=== PATIENT | female | born 1935 | race Caucasian/White ===

== ENCOUNTER 2016-10-17 10:47 | Emergency (ER) | payer OTHER, MEDICARE ==
[~2016-10-17] VITALS: Ht 160 cm; Wt 75.0 kg
[~2016-10-17 10:47] MED LIST: ACET-1256 PO; ATEN-175 PO; CRS/10 PO; HYZ/50125 PO; LEVO-438 PO; NIFE30TA83 PO; NYSS/ PO; POTA10CA28 PO
[2016-10-17 10:54] VITALS: TEMP 36.6; Ht 160 cm; Wt 75.0 kg
[2016-10-17] MEDS ORDERED: SYN75 PO (11:02)
[2016-10-17] MEDS ORDERED: LOSA50TA6 PO (11:02)
--- NOTE | 2016-10-17 11:50 | DIAGNOSTIC IMAGING REPORT ---
CT LUMBAR SPINE WITHOUT CT DOSE: 586.28 mGycm CLINICAL HISTORY: Low back pain TECHNIQUE: Helical images were acquired in transverse plane. Reformatted sagittal and coronal images were reviewed. CONTRAST: No contrast was administered COMPARISON STUDY: None. FINDINGS: L1-2 level: There is no evidence of significant disc bulge or focal herniation. There is no evidence of spinal or foraminal stenosis. L2-3 level: There is a mild circumferential disc bulge. There is mild spinal stenosis. There is mild facet joint arthropathy on the right. L3-4 level: There is a circumferential disc bulge. There is facet joint arthropathy on the right. There is mild to moderate spinal stenosis. L4-5 level: There is a mild circumferential disc bulge. There is a slight triangular configuration of the thecal sac.. L5-S1 level: There is no evidence of significant disc bulge or focal herniation. There is no evidence of spinal or foraminal stenosis. There are no acute fractures or traumatic subluxations. There is a lumbar levoscoliosis. No destructive lesions are visualized. IMPRESSION: 1. No acute fractures or traumatic subluxations identified 2. Lumbar levoscoliosis 3. Multilevel spondylitic changes. The findings are most severe at the L3-4 level where there is mild to moderate spinal stenosis. Electronically signed by: Mitchell Garcia M.D. 10/17/2016 11:49 AM Dictated Date/Time: 10/17/2016 11:45 AM
[2016-10-17 12:49] LABS: URINE APPEARANCE CLEAR (CLEAR); URINE BILIRUBIN NEG (NEG); URINE COLOR YELLOW; URINE NITRITE NEG (NEG); URINE SPECIFIC GRAVITY 1.007 (1.000-1.030); UROBILINOGEN NEG (NEG)
[2016-10-17 12:55] LABS: MANUAL MICROSCOPIC REQUIRED? NO; REVIEW REQ? NO
[2016-10-17] MEDS ORDERED: TRAM-10 PO (13:40)
--- NOTE | 2016-10-17 13:41 | EMERGENCY ROOM VISIT NOTE ---
ED Visit Note First contact with patient: 11:03 CHIEF COMPLAINT: Left low back pain 1 month HISTORY OF PRESENT ILLNESS: Patient is an 81-year-old white female who presents emergency department for evaluation of left low back pain 1 month. She is accompanied by her daughters who are visiting from [place]. Patient reports that she has had pain in her left low back for about a month. She has experienced pain every day, but states that the pain is not constant. It is located in the left side of her low back, and does not radiate. She only feels "jabs or shocks" of pain with certain movements, particularly twisting or leaning over. At the present time she has no pain and rates her discomfort a 0/ 10. She took a few doses of Tylenol and applied ice to the area, otherwise has not done anything else for her pain. She denies any unusual activities falls or direct trauma prior to the onset of her pain. It does not radiate into her buttocks or to her legs. There is no associated numbness, tingling or weakness. She denies any radiation of the pain to her abdomen. No nausea, vomiting, diarrhea, constipation or stool changes, she denies any urinary symptoms. She denies her having problems with her back previously. REVIEW OF SYSTEMS: Review of systems as per HPI. All other systems reviewed were negative. 10 systems reviewed. PMH: Electronic medical records are reviewed and summarized as above/below. See Problem List. SOCIAL HISTORY: Patient lives at home by herself. She is a smoker. PHYSICAL EXAM: Vital Signs: Reviewed Nurse's notes. CONSTITUTIONAL: Patient is a pleasant, well-appearing 81-year-old white female who is awake and alert and in no acute distress seated in the chair at the bedside. She does not have any discomfort when standing or walking. Normal gait. CARDIOVASCULAR: Regular rate and rhythm. Peripheral pulses easily palpable. RESPIRATORY: Breath sounds equal and clear to auscultation without wheezes, rales, or rhonchi heard. Full and equal chest expansion without accessory muscle use or retractions. ABDOMEN: Bowel sounds are present. Abdomen is soft, nontender and nondistended. INTEGUMENTARY: No lesions or rash, normal skin turgor. LYMPH: No lymphadenopathy. SPINE: Examination of the patient's back does not demonstrate any ecchymosis, abrasions or outward signs of trauma. No erythema, increased warmth or induration. Patient has no midline discomfort to palpation over the lumbar spinous processes. No reproducible paraspinous muscle tenderness or spasm. There is no pain over the SI joint or the sciatic notch. Range of motion is full, patient does have some discomfort with rotation. EXTREMITIES: Leg lengths are symmetrical. Negative logroll bilaterally. Normal strength including dorsi-flexion and plantar flexion of the great toes and ankles and flexion and extension of the knees and flexion of the hips. Negative bilateral straight leg raise testing. Lower extremity DTRs are equal and symmetrical bilaterally. Distal pulses are easily palpable. Sensation light touch is intact over the lower extremities bilaterally. EMERGENCY DEPARTMENT COURSE: Urine sample was collected and urinalysis was completely clear without signs of infection. Lumbar spine CT was obtained and noted mild arthritic changes and spinal stenosis. Patient was reviewed with attending physician who also independently evaluated the patient. Conservative care measures were discussed with the patient and her family. She is encouraged to use acetaminophen, she states that she cannot tolerate NSAIDs. She can apply heat to the area, and was given a prescription for tramadol she can use for severe pain. She is established with [facility] and was encouraged to follow-up with them for further care and evaluation, particularly if her symptoms are not improving. I suspect her pain is largely muscular or ligamentous in nature, but could be related to the stenosis. She does not have any physical exam findings to suspect acute cord compression or cauda equina syndrome. She is discharged home in good condition. CT LUMBAR SPINE WITHOUT CT DOSE: 586.28 mGycm CLINICAL HISTORY: Low back pain TECHNIQUE: Helical images were acquired in transverse plane. Reformatted sagittal and coronal images were reviewed. CONTRAST: No contrast was administered COMPARISON STUDY: None. FINDINGS: L1-2 level: There is no evidence of significant disc bulge or focal herniation. There is no evidence of spinal or foraminal stenosis. L2-3 level: There is a mild circumferential disc bulge. There is mild spinal stenosis. There is mild facet joint arthropathy on the right. L3-4 level: There is a circumferential disc bulge. There is facet joint arthropathy on the right. There is mild to moderate spinal stenosis. L4-5 level: There is a mild circumferential disc bulge. There is a slight triangular configuration of the thecal sac.. L5-S1 level: There is no evidence of significant disc bulge or focal herniation. There is no evidence of spinal or foraminal stenosis. There are no acute fractures or traumatic subluxations. There is a lumbar levoscoliosis. No destructive lesions are visualized. IMPRESSION: 1. No acute fractures or traumatic subluxations identified 2. Lumbar levoscoliosis 3. Multilevel spondylitic changes. The findings are most severe at the L3-4 level where there is mild to moderate spinal stenosis. 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 (12) Thrush Status: Resolved Current/Historical Medications Scheduled Atenolol (Tenormin), 100 MG PO QAM Levothyroxine Sodium (Synthroid), 75 MCG PO QAM Losartan Potassium (Cozaar), 50 MG PO DAILY Nifedipine Ext Rel (Procardia Xl Ext Rel), 60 MG PO QAM Rosuvastatin Calcium (Crestor), 10 MG PO HS Scheduled PRN Tramadol (Ultram), 50 MG PO Q4H PRN for Pain Allergies Coded Allergies: Ibuprofen (Unverified Allergy, Unknown, NAUSEA, 10/17/16) Vital Signs Date Time Temp Pulse Resp B/P Pulse Ox O2 Delivery O2 Flow Rate FiO2 10/17/16 14:04 62 16 144/79 98 10/17/16 12:44 52 16 150/70 98 Room Air 10/17/16 10:54 36.6 72 20 156/83 97 Room Air Laboratory Results Test 10/17/16 12:40 Urine Color YELLOW Urine Appearance CLEAR (CLEAR) Urine pH 8.0 (4.5-7.5) Urine Specific Atlantic 1.007 (1.000-1.030) Urine Protein NEG (NEG) Urine Glucose (UA) NEG (NEG) Urine Ketones NEG (NEG) Urine Occult Blood NEG (NEG) Urine Nitrite NEG (NEG) Urine Bilirubin NEG (NEG) Urine Urobilinogen NEG (NEG) Urine Leukocyte Esterase NEG (NEG) Departure Information Impression Primary Impression: Lumbar back pain Prescriptions Tramadol (Ultram) 50 Mg Tab 50 MG PO Q4H Y for Pain, #20 TAB For Initial Treatment Prov: Kaila Granados PA 10/17/16 Referrals No Doctor, Assigned (PCP) Fritz Kebede, DO Patient Instructions My [facility] Additional Instructions Tramadol (Ultram) 50mg: Take 1-2 pills every four hours for breakthrough pain. Avoid alcohol, operating machinery or dangerous equipment, working on ladders or roofs, DRIVING, or situations where being under the influence may be dangerous. It is recommended to use an rtom-mmy-alytzos stool softener such as Colace, 100mg twice daily while taking this medication to avoid constipation. Acetaminophen(Tylenol) may be used for fever or pain. Use 1000mg every six hours as needed. Avoid using more than 3000mg in a 24 hour period. This medication can be taken if you need to drive, work, or perform activities which may be dangerous when taking narcotic pain medication. Rest and avoid heavy lifting until your symptoms resolve and then gradually return to full activity. A good rule of thumb is if it hurts your back to perform a certain activity, then it should be avoided until you are healthy again. A heating pad, warm compresses, or a hot shower may help with tight muscles and can be done several times a day as needed. Continue current medications. Return to the ER immediately for any numbness, tingling, severe pain, loss of control of your bowels or bladder, inability to walk, or as needed. Follow up with Dr. Kebede with [facility] for a recheck of your current condition.
--- NOTE | 2016-10-17 14:01 | EMERGENCY ROOM VISIT NOTE ---
ED Visit Note First contact with patient: 11:03 The patient was seen and examined with Cherelle Granados PA-C. I agree with the history, physical and findings. Please see the note for disposition and details.
[2016-10-17 14:04] VITALS: BP 144/79; PULSE 62; O2SAT 98
== END 2016-10-17 14:05 | disposition home or self-care (01) ==
LOC: C.EDB 10:49 → C.EDC 14:05
DX: M54.5 Low back pain (principal); J44.9 Chronic obstructive pulmonary disease, unspecified; E78.5 Hyperlipidemia, unspecified; I10 Essential (primary) hypertension; E03.9 Hypothyroidism, unspecified; Z79.899 Other long term (current) drug therapy; F17.210 Nicotine dependence, cigarettes, uncomplicated

== ENCOUNTER 2019-02-09 17:23 | Inpatient (IN) ==
--- OUTSIDE RECORDS SUMMARY | 2019-02-09 17:26 | External Medical Summary | Continuity of Care Document ---
:1935 Author Name Enrrique Funes, Provider Address Unavailable Unavailable , Care Team Providers Name Role Phone Unavailable Unavailable Unavailable Michael [email or web address] ROBERT LEONARDO Unavailable Unavailable Unavailable Unavailable Unavailable Problems Chest pressure (786.59) (R07.89) Hypertension (401.9) (I10) Hyperlipidemia (272.4) (E78.5) Tobacco use (305.1) (Z72.0) Lump or mass in breast (611.72) (N63.0) Hypothyroidism (244.9) (E03.9) Osteoarthritis (715.90) (M19.90) Coronary artery calcification (414.00) (I25.10) Chronic obstructive pulmonary disease (496) (J44.9) Premature ventricular contractions (427.69) (I49.3) Palpitations (785.1) (R00.2) Menopause (627.2) (Z78.0) Ectopic atrial rhythm (427.89) (I49.1) Abnormal lung field (793.19) (R91.8) Mastodynia (611.71) (N64.4) Allergies and Adverse Reactions Norvasc TABS (Allergy) Medications NIFEdipine ER Osmotic Release 60 MG Oral Tablet Extended Release 24 Hour; TAKE 1 TABLET DAILY. Shantel Weinstein Start: 18-Feb-2017 Quantity: 30 Refills: 5 Levothyroxine Sodium 75 MCG Oral Tablet; TAKE 1 TABLET DAILY . Shantel Refills: 0 Crestor 10 MG Oral Tablet; TAKE 1 TABLET DAILY. Shantel Refills: 0 Losartan Potassium 50 MG Oral Tablet; TAKE 1 TABLET DAILY. Shantel Start: 16-Mar-2017 Quantity: 30 Refills: 0 Atenolol 100 MG Oral Tablet; TAKE (1) TABLET BY MOUTH ONCE DAILY Shantel Weinstein Start: 13-May-2012 Quantity: 30 Refills: 5 Aspirin 81 MG TABS; TAKE 1 TABLET DAILY. Shantel Weinstein hay Start: 06-Oct-2013 Quantity: 30 Refills: 0 Procedures History of Oral Surgery Tooth Extraction Status: Completed Immunizations Immunizations not documented Social History - Smoking Status Smoker. current status unknown Interventions Follow-ups/ReferralsFollow-up visit in 6 months; Done: 17 Mar 2018 Plan of Treatment Planned Observations Planned Goals not documented Results No Known Results Results not documented Encounters Appointment; Michael Weinstein M.D. 17-Mar-2018 10:15 Encounter Diagnosis: Problem not documented Appointment; Zaira Roberts PA-C 03-Sep-2017 10:30 Encounter Diagnosis: Problem not documented Appointment; Stress, Echocardiogram 1 03-Sep-2017 9:30 Encounter Diagnosis: Problem not documented Appointment; Blake Oh PA-C 27-Aug-2017 14:30 Encounter Diagnosis: Problem not documented Appointment; Michael Weinstein M.D. 16-Mar-2017 11:30 Encounter Diagnosis: Problem not documented
[2019-02-09 18:36] LABS: Basophils # (auto) 0.01 K/uL (0-0.2); Basophils % (auto) 0.1 %; Eosinophils # (auto) 0.06 K/uL (0-0.5); Eosinophils % (auto) 0.9 %; Hematocrit (blood only) 44.9 % (37-47); Hemoglobin 15.2 g/dL (12.0-16.0); Immature Granulocytes # (auto) 0.01 K/uL (0.00-0.02); Immature Granulocytes % (auto) 0.1 %; Lymphocytes # (auto) 1.52 K/uL (1.2-3.4); Lymphocytes % (auto) 22.8 %; Mean Corpuscular Hemoglobin 31.1 pg (25-34); Mean Corpuscular Hgb Conc 33.9 g/dL (32-36); Mean Corpuscular Volume 91.8 fL (80-100); Mean Platelet Volume 12.1 fL (7.4-10.4); Monocytes # (auto) 0.63 K/uL (0.11-0.59); Monocytes % (auto) 9.4 %; Neutrophils # (auto) 4.44 K/uL (1.4-6.5); Neutrophils % (auto) 66.7 %; Platelet Count 195 K/uL (130-400); RDW Coefficient of Variation 13.5 % (11.5-14.5); RDW Standard Deviation 45.4 fL (36.4-46.3); Red Blood Count 4.89 M/uL (4.2-5.4); White Blood Count 6.67 K/uL (4.8-10.8)
--- NOTE | 2019-02-09 18:57 | XRay Report ---
XR chest 1V portable CLINICAL HISTORY: 83 years-old Female presenting with Chest Pain. TECHNIQUE: Portable upright AP view of the chest was obtained. COMPARISON: 12/17/2015. FINDINGS: Atherosclerosis of the aortic arch. Cardiac silhouette enlarged. Eventration of the left hemidiaphrag m as on prior exam. No focal opacity. No large effusion or pneumothorax. Degenerative changes of the thoracic spine. Reversed total right shoulder arthroplasty. Underlying osteopenia suspected. Upper ab domen normal. IMPRESSION: 1. Cardiomegaly. No other convincing evidence of acute cardiopulmonary disease. Electronically signed by: Rah Dozier M.D. 02/09/2019 6:56 PM
[2019-02-09 19:03] LABS: Albumin Level 3.7 gm/dl (3.4-5.0); BUN Creatinine Ratio 16.5 (10-20); Calcium 9.1 mg/dl (8.5-10.1); Creatinine Clr Calc Pharmacy 42.9 ml/min; Est GFR (Non-African American) 56.1
[2019-02-09 19:12] LABS: Bilirubin,Total 0.2 mg/dl (0.2-1); Globulin 3.6 gm/dl (2.5-4.0); Total Protein 7.3 gm/dl (6.4-8.2); Troponin I 0.681 ng/ml (0-0.045)
[2019-02-09] MEDS ORDERED: ASPIRIN CHEW 324 MG PO STA (19:49)
[2019-02-09] MEDS ORDERED: Heparin IV Low Dose WITH Bolus STA (19:49)
[2019-02-09] MEDS ORDERED: HEPARIN SODIUM/DEXTROSE 25,000 UNITS/500 ML BAG IV SCH (20:00)
[2019-02-09 20:16] LABS: Partial Thromboplastin Ratio 0.9; Partial Thromboplastin Time 24.7 Seconds (21.0-31.0); Prothrombin Time 10.1 Seconds (9.0-12.0)
[2019-02-09] MEDS ORDERED: Heparin BOLUS **ED Use Only IV STA (20:20)
--- NOTE | 2019-02-09 20:52 | History & Physical Report ---
Date of Service February 09, 2019 Assessment & Plan (1) NSTEMI (non-ST elevated myocardial infarction): 83 y/o F with PMH HTN, HLD, Hypothyroidism, Tobacco Abuse, Coronary Artery Calcifications (incidentally noted on CT scan 2016), and a history of an Ectopic Atrial Rhythm presents to [facility] with complaints of substernal chest pressure found to have elevated trop in ED with anterior ischemic changes on EKG. NSTEMI -EKG on admit: NSR with T wave inversion anterior leads T3-5 -initial trop .681. Repeat x2 pending -will cont medical management with Home ASA/BB/ARB/Statin, Nitropaste -Cont IV Heparin 25,000 units -Dobutamine stress echo August 2017: Negative for ischemia at 91% MPHR. No arrhythmia. No chest pain. EF 65-70%. Normal wall motion. No LVH. Type 1 diastolic dysfunction. Moderate left atrial dilation. Mild MR. Normal RVSP. -Cardiology input appreciated -A1C, Lipid panel ordered HTN/HLD -cont home losartan 50, nifedipine 60, crestor 10 -can consider increasing to high dose statin moving forward -looking back at outpt records, BP does not seem to be optimal, can also consider increase in BP med dosing H/O Ectopic atrial rhythm/PVCs -Continue beta-hardy therapy with Atenolol 100. -Asymptomatic at present Hypothyroidism -cont home levothyroxine 75 mcg -TSH pending Tobacco Abuse -nicotine patch ordered -Smoking cessation discussed. Pt not interested in quitting at this time FEN/GI: HH Diet DVT Prophylaxis: Heparin FULL CODE Dispo: PCU Tele. Cards consult for possible Cath vs medical management pending. History of Present Illness Chief Complaint: chest pressure Primary Care Provider: Jazz Hurt PA-C 83 y/o F with PMH HTN, HLD, Hypothyroidism, Tobacco Abuse, Coronary Artery Calcifications (incidentally noted on CT scan 2016), and a history of an Ectopic Atrial Rhythm presents to [facility] with complaints of substernal chest pressure. Pt notes that she has had similar symptoms since last year and gets chest pressure about once a month on average. This usually lasts 10-15 min and self-resolves. This is not associated with exertion and occurs during rest. These episodes do not appear to follow any specific pattern. Today, pt comes into the ER because she had 3-4 occurrences of this chest pressure starting at about 7:30 AM and every few hrs thereafter, all lasting 10-15 min and all self-resolving. Again, appeared to be 'random' and not exertional. Pt had associated diaphoresis, but otherwise denied palpitations, SOB, F/N/V/D, syncope, near-syncope, edema, melena, hematochezia, hematuria, or other bleeding. Symptoms are not worsened by getting up and walking, exertion, changes in body position, or with breathing / coughing. No specific triggers such as food either. Pt was seen as an outpt at [facility] August 2017 for this and underwent Dobutamine Stress Echo, which was negative. Was also recommended to start a trial of Protonix 40 mg to take 3 days/week, which did appear to decrease the frequency of these incidents. Pt with no other acute concerns or complaints. ER Course: EKG- NSR, T wave inversion V3, V4, V5. CXR- Cardiomegaly. No other convincing evidence of acute cardiopulmonary disease. Pt received ASA 243 mg, IV Heparin 25,000 units Labs- Trop .681. Otherwise unremarkable Surg Hx: R shoulder surgery Social: Current everyday smoker ~1PPD for past 40+ yrs. Denies Alcohol/Illicit Drug use. Lives at home independently. Allergies Allergy/AdvReac Type Severity Reaction Status Date / Time ibuprofen Allergy Unknown NAUSEA Unverified 02/09/19 19:25 Home Medications Home Medications Medication Instructions Recorded Confirmed Type aspirin [Aspir-81] 81 mg PO DAILY 02/09/19 02/09/19 History atenolol 100 mg PO DAILY 02/09/19 02/09/19 History levothyroxine 75 mcg PO DAILY 02/09/19 02/09/19 History losartan [Cozaar] 50 mg PO DAILY 02/09/19 02/09/19 History nifedipine 60 mg PO DAILY 02/09/19 02/09/19 History pantoprazole 40 mg PO .TODAU 02/09/19 02/09/19 History rosuvastatin [Crestor] 10 mg PO HS 02/09/19 02/09/19 History Past Med/Surg History Medical History Hypertension Surgical History Hx of shoulder surgery Family History Other Family history non-contributory Social History 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 Beliefs That Will Affect Care: Faith Faith Beliefs: anabaptism Current Living Situation: Alone Feels Safe at Home: Yes Smoking Status: Current every day smoker Tobacco Type: cigarettes ; Second Hand Exposure: No ; Hx Alcohol Use: No Review of Systems Review of Systems: All systems reviewed & are unremarkable except as noted in HPI & below Physical Exam Constitutional: WD/WN, vitals as above Eyes: PERRL, conjunctivae normal, anicteric sclerae ENMT: external ear and nose normal, oropharynx normal Respiratory: normal respiratory effort, lungs clear to auscultation Cardiovascular: RRR, no murmur, no edema Chest (Breasts): Additional Comments: substernal chest pressure not reproducible on palpation Gastrointestinal (Abdomen): normal bowel sounds, soft, nontender, no hepatosplenomegaly Skin: no rashes, warm and dry Psychiatric: A+Ox3, euthymic affect Lymphatic: No LE swelling Results & Data Vital Signs (Past 12 Hours) Vital Signs Temp Pulse Pulse Resp BP BP Pulse Ox 02/09/19 19:40 66 20 148/69 H 99 02/09/19 18:10 57 L 20 167/78 H 96 02/09/19 17:26 36.7 C 69 18 165/92 H 97 Laboratory Results Laboratory Results - last 24 hr 02/09/19 02/09/19 02/09/19 18:18 18:18 18:18 WBC 6.67 RBC 4.89 Hgb 15.2 Hct 44.9 MCV 91.8 MCH 31.1 MCHC 33.9 RDW Std Deviation 45.4 RDW Coeff of Aurelio 13.5 Plt Count 195 MPV 12.1 H Immature Gran % (Auto) 0.1 Neut % (Auto) 66.7 Lymph % (Auto) 22.8 Yancey % (Auto) 9.4 Eos % (Auto) 0.9 Baso % (Auto) 0.1 Immature Gran # (Auto) 0.01 Neut # (Auto) 4.44 Lymph # (Auto) 1.52 Yancey # (Auto) 0.63 H Eos # (Auto) 0.06 Baso # (Auto) 0.01 PT 10.1 INR 1.0 APTT 24.7 PTT Ratio 0.9 Sodium 141 Potassium 4.0 Chloride 108 H Carbon Dioxide 26 Anion Gap 6.0 BUN 16 Creatinine 0.94 Est Cr Clr Drug Dosing 42.9 Est GFR ( Amer) 65.0 Est GFR (Non-Af Amer) 56.1 BUN/Creatinine Ratio 16.5 Glucose 117 H Calcium 9.1 Total Bilirubin 0.2 AST 16 ALT 18 Alkaline Phosphatase 90 Troponin I 0.681 H* Total Protein 7.3 Albumin 3.7 Globulin 3.6 Albumin/Globulin Ratio 1.0 Lipase 117 Medications Administered Current Inpatient Medications Heparin Sodium/Dextrose (Heparin Sodium/Dextrose) 25,000 units in 500 mls @ 14 mls/hr IV .Q24H [facility]; Protocol Stop: 03/11/19 19:59 Code Status & VTE Plan Code Status FULL CODE Supervising Physician Co-Signing Physician Notes Attending addendum: I have physically seen this patient, have supervised the medical residents activities, and agree with the H&P unless as otherwise noted. Assessment and Plan: NSTEMI/hypertension- The patient will be admitted to telemetry for serial cardiac enzymes, serial EKG's, cardiac rhythm monitoring and a 2-D echocardiogram with Dopplers.. Continue heparin drip begun in ED without bolus. Continue atenolol 100 mg p.o. daily, losartan 50 mg daily, nifedipine 60 mg daily and aspirin 81 mg daily. Consult cardiology. Hyperlipidemia- Continue rosuvastatin 10 mg at bedtime. Check a fasting lipid panel and hemoglobin A1c. Remainder of orders and notations as noted. PG Care Time/CCT Total # of Minutes Spent Total Time Spent with Patient: Total time spent is greater than 50% in coordination of care (as documented) at patient's floor/unit and/or counseling patient: Resident Activity Tracking Resident Involvement: Resident Care Provided Care Provided: Adult Hospital Medicine
[2019-02-09] MEDS ORDERED: ONDANSETRON INJ 2 MG/ML 2 ML VIAL IV PRN (22:24)
[2019-02-09] MEDS ORDERED: ACETAMINOPHEN 325 MG TAB PO PRN (22:24)
[2019-02-09] MEDS ORDERED: ALUMINUM/MAGNESIUM SUSP 30 ML UDC PO PRN (22:24)
[2019-02-09] MEDS: NITROGLYCERIN 2% OINTMENT 30GM TUBE EXT SCH (23:39)
[2019-02-10] MEDS: NITROGLYCERIN 2% OINTMENT 30GM TUBE EXT SCH ×3 (01:45→13:46)
--- NOTE | 2019-02-10 02:15 | Emergency Department Note ---
Entered by Edie Castle acting as a scribe for Fritz Link MD ED Provider Note CHIEF COMPLAINT: Chest discomfort HISTORY OF PRESENT ILLNESS: The patient is a 83 year old female who presents to the Emergency Room with complaints of intermittent chest discomfort starting today. The patient states she started to get intermittent chest discomfort that would last about 20 minutes at a time a year ago. She states it feels like chest pressure. She notes she went to the doctors office and they gave her acid reflux medication. She notes she previously got a stress test done by Dr. Weinstein, Cardiology, and he knew about her acid reflux. She states she got 3 episodes of chest discomfort and pressure today. She states the last one happened about 4 hours ago and lasted 15 minutes. She notes she got sweaty every time she had the chest discomfort. She states she has been SOB and nauseous today. She notes she went to the [facility] and was referred to the ED. She notes she had an EKG done. She states she does not have any chest discomfort now. She states she is a smoker. Pt denies LOC, headache, fevers, chills, visual changes, neck pain, vomiting, abdominal pain, back pain, melena, hematochezia, urinary symptoms, numbness, weakness, lymphadenopathy, rash, or other complaints. REVIEW OF SYSTEMS: See HPI for pertinent positives and negatives. A total of ten systems were reviewed and were otherwise negative. PMHx/PSHx: Hypertension, reflux, shoulder surgery. SOCIAL HISTORY: Patient lives at home. PHYSICAL EXAM: GENERAL: Awake, alert, well-appearing, in no distress HENT: Normocephalic, atraumatic. Oropharynx unremarkable. EYES: PERRL. Normal conjunctiva. Sclera non-icteric. NECK: Inspection normal. Non-tender. Supple. No nuchal rigidity. FROM. No masses. RESPIRATORY: Clear to auscultation. No wheezes. No rales. Normal respiratory effort. CARDIAC: Normal rate. Normal rhythm. No murmurs. No rubs. Extremities warm and well perfused. Pulses equal. No JVD. GI: Soft, non-distended. No tenderness to palpation. No rebound or guarding. No masses. RECTAL: Deferred. MUSCULOSKELETAL: Atraumatic. Chest examination reveals no tenderness. The back is symmetrical on inspection without obvious abnormality. There is no CVA tenderness to palpation. No joint edema. LOWER EXTREMITIES: Calves are equal size bilaterally and non-tender. No edema. No discoloration. NEURO: Normal sensorium. No sensory or motor deficits noted. SKIN: No rash or jaundice noted. EMERGENCY DEPARTMENT COURSE: 1836: Past medical records reviewed. The patient was evaluated in room C12B, and a complete history and physical examination were performed. 1944: Patient was reassessed. She was informed about her findings consistent with non-ST elevation SD. Discussed need for hospitalization, aspirin and heparin. 1999: I discussed the patient's case with Dr. Heath - [facility] Hospitalist. He will evaluate the patient for further management. MEDICAL DECISION MAKING: Triage Nursing notes reviewed and agree them. Additional history obtained from the family. The patient's history was concerning for chest pain. Differential diagnosis: Etiologies such as cardiac ischemia, aortic dissection, pulmonary embolism, pneumonia, pneumothorax, musculoskeletal, infections, pericarditis, myocarditis, esophageal rupture, gastrointestinal, as well as others were entertained. Physical examination: As above. ER treatment provided: Oral aspirin Heparin drip On reassessment the patient felt better. Diagnostic interpretation by me: The electrocardiogram was concerning for acute change. The labs revealed an unremarkable CBC and chemistry panel. Troponin positive. Imaging studies: Chest x-ray negative for acute process. The patient has an abnormal ECG and an elevated troponin with episodic chest pain today. This is concerning for an acute coronary syndrome and non-ST elevation SD. Further management in the hospital will be necessary. I gave my usual and customary discussion regarding this issue. Consultation: A consultation was placed with the hospitalist. The case was discussed and diagnostics were reviewed. The patient was evaluated in the ER for further treatment. IMPRESSION: Acute coronary syndrome PLAN: Admitted CRITICAL CARE: I have personally spent greater than 30 minutes of critical care time in the direct management of this patient. This includes bedside care, interpretation of diagnostic studies, and testing, discussion with consultants, patient, and family members, and other required patient management activities. This 30 minutes is in excess of all separately billable procedures. The scribe's documentation has been prepared under my direction and personally reviewed by me in its entirety. I confirm that the note above accurately reflects all work, treatment, procedures, and medical decision making performed by me. Impression & Plan Acute coronary syndrome Past Med/Surg History Medical History Hypertension Surgical History Hx of shoulder surgery Family History Other Family history non-contributory Social History Cable Tester Required: No Beliefs That Will Affect Care: Advent Advent Beliefs: temple Current Living Situation: Alone Other Information That Helps Us Care for You: No Feels Safe at Home: Yes Safety Concerns: Feels Safe At This Time Smoking Status: Current every day smoker Tobacco Type: cigarettes ; Second Hand Exposure: No ; Tobacco Cessation Education Requested by Patient: No Hx Alcohol Use: No Results & Data Vital Signs Vital Signs - 24 hr 02/09/19 17:26 02/09/19 18:10 02/09/19 19:40 Temperature 36.7 C Temperature Source Oral Sepsis Recent Fever Within 48 Hours No Sepsis New/Unexplained Change in Mental Status No Sepsis Action Taken by Nursing No Action Required Pulse Rate 69 Pulse Rate [Right Finger] 57 L 66 Respiratory Rate 18 20 20 Blood Pressure 165/92 H Blood Pressure [Left Arm] 167/78 H 148/69 H Blood Pressure Mean 116 Blood Pressure Mean [Left Arm] 107 95 Pulse Oximetry 97 96 99 Oxygen Delivery Method Room Air Home Medications Current Medication List: was personally reviewed by me Laboratory Data Attestation: I reviewed the patient's lab results. Result diagrams: 02/09/19 18:18 02/09/19 18:18 Lab Results 02/09/19 02/09/19 02/09/19 Range/Units 18:18 18:18 18:18 WBC 6.67 (4.8-10.8) K/uL RBC 4.89 (4.2-5.4) M/uL Hgb 15.2 (12.0-16.0) g/dL Hct 44.9 (37-47) % MCV 91.8 (80-100) fL MCH 31.1 (25-34) pg MCHC 33.9 (32-36) g/dL RDW Std Deviation 45.4 (36.4-46.3) fL RDW Coeff of Aurelio 13.5 (11.5-14.5) % Plt Count 195 (130-400) K/uL MPV 12.1 H (7.4-10.4) fL Immature Gran % (Auto) 0.1 % Neut % (Auto) 66.7 % Lymph % (Auto) 22.8 % Lucas % (Auto) 9.4 % Eos % (Auto) 0.9 % Baso % (Auto) 0.1 % Immature Gran # (Auto) 0.01 (0.00-0.02) K/uL Neut # (Auto) 4.44 (1.4-6.5) K/uL Lymph # (Auto) 1.52 (1.2-3.4) K/uL Lucas # (Auto) 0.63 H (0.11-0.59) K/uL Eos # (Auto) 0.06 (0-0.5) K/uL Baso # (Auto) 0.01 (0-0.2) K/uL PT 10.1 (9.0-12.0) Seconds INR 1.0 (0.9-1.1) APTT 24.7 (21.0-31.0) Seconds PTT Ratio 0.9 Sodium 141 (136-145) mmol/L Potassium 4.0 (3.5-5.1) mmol/L Chloride 108 H (98-107) mmol/L Carbon Dioxide 26 (21-32) mmol/L Anion Gap 6.0 (3-11) BUN 16 (7-18) mg/dl Creatinine 0.94 (0.6-1.2) mg/dl Est Cr Clr Drug Dosing 42.9 ml/min Est GFR ( Amer) 65.0 Est GFR (Non-Af Amer) 56.1 BUN/Creatinine Ratio 16.5 (10-20) Glucose 117 H (70-99) mg/dl Calcium 9.1 (8.5-10.1) mg/dl Total Bilirubin 0.2 (0.2-1) mg/dl AST 16 (15-37) U/L ALT 18 (12-78) U/L Alkaline Phosphatase 90 (45-117) U/L Troponin I 0.681 H* (0-0.045) ng/ml Total Protein 7.3 (6.4-8.2) gm/dl Albumin 3.7 (3.4-5.0) gm/dl Globulin 3.6 (2.5-4.0) gm/dl Albumin/Globulin Ratio 1.0 (0.9-2) Lipase 117 (73-393) U/L Administered Medications Heparin Sodium/Dextrose (Heparin Sodium/Dextrose) 25,000 units in 500 mls @ 14 mls/hr IV .Q24H LAKESHA; Protocol Stop: 03/11/19 19:59 Last Titration: 02/09/19 23:01 Dose: 700 units/hr, 14 mls/hr Documented by: [id number] Cosigned by: [id number] Admin: 02/09/19 21:26 Dose: 700 units/hr, 14 mls/hr Documented by: [id number] Cosigned by: [id number] Discontinued Medications Aspirin (Aspirin) 243 mg PO NOW STA Stop: 02/09/19 19:50 Last Admin: 02/09/19 21:31 Dose: 243 mg Documented by: [id number] Heparin Sodium (Porcine) (Heparin Iv Bolus) 4,000 units IV NOW STA Stop: 02/09/19 20:21 Last Admin: 02/09/19 21:28 Dose: Not Given Documented by: [id number] Nitroglycerin (Nitro-Bid 2%) 1 inch EXT Q6 LAKESHA Stop: 03/12/19 00:00 Last Admin: 02/10/19 01:45 Dose: 1 inch Documented by: [id number] Admin: 02/09/19 23:39 Dose: 1 inch Documented by: [id number] Imaging Data Radiologist's Impression: Radiology results as stated below per my review and the radiologist's interpretation: XR chest 1V portable CLINICAL HISTORY: 83 years-old Female presenting with Chest Pain. TECHNIQUE: Portable upright AP view of the chest was obtained. COMPARISON: 12/17/2015. FINDINGS: Atherosclerosis of the aortic arch. Cardiac silhouette enlarged. 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 No focal opacity. No large effusion or pneumothorax. Degenerative changes of the thoracic spine. Reversed total right shoulder arthroplasty. Underlying osteopenia suspected. Upper abdomen normal. IMPRESSION: 1. Cardiomegaly. No other convincing evidence of acute cardiopulmonary disease. Electronically signed by: Rah Dozier M.D. 02/09/2019 6:56 PM ECG Data Attestation: I personally reviewed and interpreted this ECG as follows: Indication: chest pain Rate (beats per minute): 61 Rhythm: sinus rhythm Findings: + other (septal Q wave) and + T-wave inversion (anterior) Comparison ECG Date: from (12/17/15) Change: the following changes noted (anterior TWI and septal Q wave are new) Blood Pressure Blood Pressure Findings: Elevated blood pressure Blood Pressure Disposition: further management by hospitalist Discharge Plan Visit Data *Final* Discharge Date/Time: 02/09/19 21:49 Chief Complaint: Chest Pain Stated Complaint: CHEST PAIN ED Provider: Fritz Link Discharge Problem: Acute coronary syndrome Patient Disposition: Admitted As Inpatient Discharge Instructions Interventions: ED Discharge Assessment Last Done: 02/09/19 21:49 The scribe's documentation has been prepared under my direction and personally reviewed by me in its entirety. I confirm that the note above accurately reflects all work, treatment, procedures, and medical decision making performed by me.
[2019-02-10 03:57] LABS: Basophils # (auto) 0.01 K/uL (0-0.2); Basophils % (auto) 0.1 %; Eosinophils # (auto) 0.16 K/uL (0-0.5); Eosinophils % (auto) 2.1 %; Hematocrit (blood only) 40.4 % (37-47); Hemoglobin 13.6 g/dL (12.0-16.0); Lymphocytes # (auto) 2.19 K/uL (1.2-3.4); Lymphocytes % (auto) 29.3 %; Mean Corpuscular Hemoglobin 30.5 pg (25-34); Mean Corpuscular Hgb Conc 33.7 g/dL (32-36); Mean Corpuscular Volume 90.6 fL (80-100); Mean Platelet Volume 12.1 fL (7.4-10.4); Monocytes # (auto) 0.86 K/uL (0.11-0.59); Monocytes % (auto) 11.5 %; Neutrophils # (auto) 4.25 K/uL (1.4-6.5); Platelet Count 167 K/uL (130-400); RDW Coefficient of Variation 13.4 % (11.5-14.5); RDW Standard Deviation 44.9 fL (36.4-46.3); Red Blood Count 4.46 M/uL (4.2-5.4); White Blood Count 7.47 K/uL (4.8-10.8)
[2019-02-10 04:06] LABS: Partial Thromboplastin Ratio 1.3; Partial Thromboplastin Time 35.9 Seconds (21.0-31.0)
[2019-02-10 04:14] LABS: BUN Creatinine Ratio 15.5 (10-20); Calcium 8.3 mg/dl (8.5-10.1); Est GFR (African American) 88.3; Est GFR (Non-African American) 76.2; Potassium 3.6 mmol/L (3.5-5.1)
[2019-02-10] MEDS ORDERED: HEPARIN SOD (PORCINE) 1000 UNIT/ML 10 ML VIAL IV ONE (04:19)
[2019-02-10 04:24] LABS: Thyroid Stimulating Hormone 1.77 uIu/ml (0.300-4.500)
[2019-02-10] MEDS ORDERED: HEPARIN IV BOLUS 4,000 UNITS in SYRINGE 0 ML IV ONE (04:30)
[2019-02-10 06:06] LABS: Estimated Average Glucose 117 mg/dl; Hemoglobin A1C 5.7 % (4.5-5.6)
[2019-02-10] MEDS: LEVOTHYROXINE SODIUM 75 MCG TABLET PO SCH (06:20)
--- NOTE | 2019-02-10 08:00 | Family Medicine Progress Note ---
Date of Service February 10, 2019 Assessment & Plan (1) NSTEMI (non-ST elevated myocardial infarction): 83 y/o F with PMH HTN, HLD, Hypothyroidism, Tobacco Abuse, Coronary Artery Calcifications (incidentally noted on CT scan 2015), and a history of an Ectopic Atrial Rhythm presents to [facility] with NSTEMI, cath negative for severe coronary disease so likely vasospastic angina. NSTEMI likely due to Vasospastic Angina - EKG on admit: NSR with T wave inversion anterior leads T3-5 - initial trop 0.681, has peaked to over 2.0 and begun to downtrend prior to rounds this AM. - Echo reviewed by Cardiology preliminarily demonstrated mid to distal LAD territory wall motion abnormalities and Catheterization was ordered. - Catheterization showed no severe CAD or aortic stenosis that would explain her presenting symptoms. However given her NSTEMI Cardiology recs DAPT x1 year and treat for possible vasospasm, appreciate their recs. Started Plavix 300mg dose today and 75mg daily moving forward for one year. Started Imdur 30mg daily. - Will cont medical management with Home ASA/BB/ARB/Statin, Nitropaste. - Have increased her home nifedipine to 90mg PO daily. Educated the patient extensively on the vasoconstricting effects of smoking and how quitting smoking will do much in helping with vasospasm. -A1C 5.7, Lipid panel: total cholesterol 117 LDL 63 HDL 41, TG 66 HTN/HLD - Cont home losartan 50, nifedipine 60, crestor 10 - Can consider increasing to high dose statin moving forward - BP controlled in house, follow with PCP following discharge. H/O Ectopic atrial rhythm/PVCs - Continue beta-hardy therapy with Atenolol 100. - Asymptomatic at present. Hypothyroidism - TSH 1.77 this admission. - Continue home levothyroxine 75 mcg. Tobacco Abuse - Nicotine patch ordered - Smoking cessation discussed at length today. Will discuss further with patient tomorrow as this would be crucial to her treatment for vasospastic angina. FEN/GI: Heart Healthy Diet DVT Prophylaxis: Heparin Code Status: FULL CODE Dispo: Med/Surg with Tele Supervising Physician Co-Signing Physician Notes I personally examined the patient and verified all early points of history and exam, discussed case, and agree with decision making with Dr Santoyo. Feeling somewhat nauseated post-cath. Case discussed with cardiology. Input appreciated. Patient still smoking. Son present. Vitals noted, in general she is awake and alert pleasant no distress. HEENT normal cephalic atraumatic mucous members are moist. Breathing unlabored no accessory muscle use good effort. Skin shows no rashes no pallor or icterus. NSTEMIafter cath, this appears to be vasospasm. Increase her nifedipine to 90, cardiology recommends addition of long-acting nitrate as well. I discussed with the patient quite frankly that with the vasospastic effects of nicotine, that these medication changes if she continues to smoke would be analogous to giving her a towel while she still in the swimming pool. She expressed understanding. Tobacco abusecounseled to quit as above. Son is encouraging her to quit as well. Right now she is thinking about it. Tomorrow if she believes she will need help with quitting modalities, we can discuss these further too. DVT prophylaxishas just been on heparin drip related to her NM. Now on dual antiplatelets and once she is post cath enough hours, she will be ambulatory. Subjective Pt without acute events overnight. Denies chest pain at this time, reports that she has had similar pain off and on for many months however it has been worse and more often over the last several days. Pain does happen at random times and can be at rest or with exertion. No shortness of breath. Review of Systems Constitutional: no fever and no chills Respiratory: no cough, no dyspnea and no wheezing Cardiovascular: no chest pain (described as pressure. Not present now but when she had pain yesterday.) Gastrointestinal: no abdominal pain, no vomiting, no constipation and no diarrhea/loose stools Physical Exam Constitutional: WD/WN, vitals as above Respiratory: normal respiratory effort, lungs clear to auscultation Cardiovascular: RRR, no murmur, no edema Gastrointestinal (Abdomen): normal bowel sounds, soft, nontender, no hepatosplenomegaly Skin: no rashes, warm and dry Psychiatric: A+Ox3, euthymic affect Results & Data Vital Signs (Past 12 Hours) Vital Signs Temp Pulse Pulse Resp BP Pulse Ox 02/10/19 03:51 36.6 C 51 L 20 122/71 94 02/09/19 23:30 67 02/09/19 23:02 36.8 C 59 L 18 145/83 H 96 02/09/19 22:48 72 20 166/74 H 97 02/09/19 22:24 36.6 C 59 L 18 154/78 H 97 02/09/19 21:33 53 L 20 142/70 H 96 Diagnostic Findings Cardiac Catheterization 02/10/2019: Impression: 1. Moderate nonobstructive CAD involving the RCA and otherwise mild nonobstructive CAD involving left system. 2. No severe CAD, especially to cause her presenting rest symptoms. 3. No aortic stenosis. 4. Normal LVEDP. Plan: 1. Medical therapy recommended. 2. Treat for possible vasospasm. 3. Recommend dual antiplatelet therapy for 1 year, if no contraindications for medical therapy of an STEMI. 4. Smoking cessation. 5. Images reviewed with interventional cardiology. PG Care Time/CCT Total # of Minutes Spent Total Time Spent with Patient: Total time spent is greater than 50% in coordination of care (as documented) at patient's floor/unit and/or counseling patient: Resident Activity Tracking Resident Involvement: Resident Care Provided Care Provided: Adult Hospital Medicine
[2019-02-10] MEDS: ASPIRIN 81 MG ECTAB PO SCH (08:19)
[2019-02-10] MEDS: ATENOLOL 50 MG TABLET PO SCH (08:19)
[2019-02-10] MEDS: LOSARTAN POTASSIUM 50 MG TAB PO SCH (08:20)
[2019-02-10] MEDS: NICOTINE 14 MG/24 HR PATCH TD SCH (08:20)
[2019-02-10] MEDS: PANTOprazole 40 MG TAB PO SCH (08:20)
[2019-02-10] MEDS ORDERED: NIFEdipine EXTENDED REL 30 MG TABCR PO SCH (09:00)
[2019-02-10 11:04] LABS: Partial Thromboplastin Ratio 2.6
[2019-02-10 11:08] LABS: Partial Thromboplastin Time 69.8 Seconds (21.0-31.0)
--- NOTE | 2019-02-10 12:40 | Cardiology Consultation ---
Date of Consultation February 10, 2019 Assessment & Plan (1) NSTEMI (non-ST elevated myocardial infarction): No further angina. Elevated troponins. Abnormal anterior T waves on ECG. Echo ordered. Echo later reviewed preliminarily demonstrating mid to distal LAD territory wall motion abnormalities. Recommend a cardiac catheterization. Risk and benefits were discussed with her. She was made aware that CT surgery is not available at this facility. She was agreeable to undergo the procedure and PCI, if deemed appropriate, at [facility]. Continue n.p.o. Continue heparin drip. Continue antiplatelet therapy. Continue beta-hardy. Continue statin therapy. Addendum: Cardiac catheterization results noted as above. She does not require intervention and there was no significant LAD stenosis noted. This suggests possible basal spasm. Cannot rule out spontaneous lysis of thrombus. Recommend Plavix 300 mg x1 now and then 75 mg daily for 1 year if no contraindications. Continue aspirin 81 mg daily. Recommend isosorbide mononitrate 30 mg daily. Nifedipine has been increased by primary service from 60 to 90 mg. Continue beta-hardy. Recommend high-intensity statin therapy; Crestor increased to 20 mg daily. Cardiac rehabilitation recommended. (2) Acute coronary syndrome: Plan as above. (3) Hypertension: Blood pressure has been normotensive to hypertensive. Nifedipine has been titrated by primary service. (4) Tobacco abuse: Smoking cessation recommended and discussed. (5) Dyslipidemia: Recommend high-intensity statin therapy in light of CAD. (6) CAD (coronary artery disease): No severe CAD noted on cardiac catheterization. Recommend medical therapy as noted above. Risk factor modification. Disposition: Cardiology will continue to follow. Plan of care discussed with Dr. Charles the primary hospitalist service. Highly complex medical issues. History of Present Illness Reason for Consultation: NSTEMI Requesting Physician: Dr. Charles Attending Physician: Lance Charles, History of Present Illness Mrs. Canales is a pleasant 83-year-old female with a history significant for hypertension, dyslipidemia, hypothyroidism, and mild COPD. She has had the following studies: 1. Echo 01/01/12: Normal LV size, systolic function, wall motion. EF 65%. No LVH. Other chambers normal size and function. Mild MR. Mild to moderate TR. No pulmonary hypertension. Minimally dilated ascending aorta. 2. Holter 12/31/11: Sinus rhythm with sinus bradycardia, average HR 59 BPM (50- 87). Occasional PVCs were 2 ventricular couplets. No symptoms reported. 3. Carotid duplex 05/13/12: Less than 50% stenosis bilateral ICA. 4. Dobutamine stress echo 09/03/2017: Negative for ischemia at 91% MPHR. No arrhythmia. No chest pain. EF 65-70%. Normal wall motion. No LVH. Type 1 diastolic dysfunction. Moderate left atrial dilation. Mild MR. Normal RVSP. She was last seen in cardiology office on 03/17/2018 with a six-month follow-up recommended. At that time, she has been experiencing rest chest discomfort for approximately 15 minutes each episode, once per month. She has continued with that pattern until yesterday when she developed 3 episodes of substernal chest heaviness that did not radiate. Just like before, her episodes occurred at rest. Each episode lasted for 15-20 minutes and spontaneously resolved. She did have associated diaphoresis but does not recall having any dyspnea. She did have occasional nausea with these episodes. She was found to have elevated troponins, peaking at 2.23 and ECGs demonstrated slight ST elevation initially in the anterior leads, which resolved and then developed T-wave inversions throughout the precordium. She has not had any further chest discomfort. She denies melena, hematochezia, hematuria, or other bleeding. She denies palpitations, syncope, near-syncope, edema. Review of systems: As above. Review of systems otherwise negative/unremarkable. Family history: No known premature CAD. Her mother had "enlarged heart" and rheumatic fever. Social history: Continues to smoke cigarettes and has smoked for the past 40+ years. Denies alcohol or drugs. She is a , remarried and then . 5 children. Grandchildren. Her 2 sons are present at the bedside. Allergies Allergy/AdvReac Type Severity Reaction Status Date / Time ibuprofen Allergy Unknown NAUSEA Unverified 02/09/19 19:25 Home Medications Home Medications Medication Instructions Recorded Confirmed Type aspirin [Aspir-81] 81 mg PO DAILY 02/09/19 02/09/19 History atenolol 100 mg PO DAILY 02/09/19 02/09/19 History levothyroxine 75 mcg PO DAILY 02/09/19 02/09/19 History losartan [Cozaar] 50 mg PO DAILY 02/09/19 02/09/19 History nifedipine 60 mg PO DAILY 02/09/19 02/09/19 History pantoprazole 40 mg PO .TODAU 02/09/19 02/09/19 History rosuvastatin [Crestor] 10 mg PO HS 02/09/19 02/09/19 History Patient History Medical History Hypertension Surgical History Hx of shoulder surgery Family History Other Family history non-contributory 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 Alert and oriented. HEENT: Anicteric sclera. Neck: No JVD. No bruits. Normal carotid upstrokes bilaterally. Cardiac: PMI was nondisplaced. No ventricular heave. Regular. Normal S1-S2. No murmurs, rubs, or gallops. Pulmonary: Clear to auscultation bilaterally without wheezes, rales, or rhonchi. Abdomen: Soft, nontender, nondistended, with normoactive bowel sounds. No bruits noted. Extremities: 2+ radial pulses bilaterally. 2+ posterior tibialis pulses bilaterally. No edema or cyanosis. No palpable cords. Psychiatric: Affect appears appropriate. Chest: Nontender to palpation. Results & Data Vital Signs (Past 12 Hours) Vital Signs Temp Pulse Pulse Resp BP Pulse Ox 02/10/19 11:45 36.6 C 66 16 114/70 94 02/10/19 09:27 55 L 02/10/19 08:15 36.8 C 55 L 16 113/66 94 02/10/19 03:51 36.6 C 51 L 20 122/71 94 Laboratory Results Laboratory Results - last 24 hr 02/09/19 02/09/19 02/09/19 18:18 18:18 18:18 WBC 6.67 RBC 4.89 Hgb 15.2 Hct 44.9 MCV 91.8 MCH 31.1 MCHC 33.9 RDW Std Deviation 45.4 RDW Coeff of Aurelio 13.5 Plt Count 195 MPV 12.1 H Immature Gran % (Auto) 0.1 Neut % (Auto) 66.7 Lymph % (Auto) 22.8 Burke % (Auto) 9.4 Eos % (Auto) 0.9 Baso % (Auto) 0.1 Immature Gran # (Auto) 0.01 Neut # (Auto) 4.44 Lymph # (Auto) 1.52 Burke # (Auto) 0.63 H Eos # (Auto) 0.06 Baso # (Auto) 0.01 PT 10.1 INR 1.0 APTT 24.7 PTT Ratio 0.9 Sodium 141 Potassium 4.0 Chloride 108 H Carbon Dioxide 26 Anion Gap 6.0 BUN 16 Creatinine 0.94 Est Cr Clr Drug Dosing 42.9 Est GFR ( Amer) 65.0 Est GFR (Non-Af Amer) 56.1 BUN/Creatinine Ratio 16.5 Glucose 117 H Estimat Average Glucose Hemoglobin A1c Calcium 9.1 Total Bilirubin 0.2 AST 16 ALT 18 Alkaline Phosphatase 90 Troponin I 0.681 H* Total Protein 7.3 Albumin 3.7 Globulin 3.6 Albumin/Globulin Ratio 1.0 Triglycerides Cholesterol LDL Cholesterol, Calc VLDL Cholesterol, Calc HDL Cholesterol Cholesterol/HDL Ratio Lipase 117 TSH 02/09/19 02/09/19 02/10/19 22:30 22:30 00:19 WBC RBC Hgb Hct MCV MCH MCHC RDW Std Deviation RDW Coeff of Aurelio Plt Count MPV Immature Gran % (Auto) Neut % (Auto) Lymph % (Auto) Burke % (Auto) Eos % (Auto) Baso % (Auto) Immature Gran # (Auto) Neut # (Auto) Lymph # (Auto) Burke # (Auto) Eos # (Auto) Baso # (Auto) PT INR APTT PTT Ratio Sodium Potassium Chloride Carbon Dioxide Anion Gap BUN Creatinine Est Cr Clr Drug Dosing Est GFR ( Amer) Est GFR (Non-Af Amer) BUN/Creatinine Ratio Glucose Estimat Average Glucose 117 Hemoglobin A1c 5.7 H Calcium Total Bilirubin AST ALT Alkaline Phosphatase Troponin I 1.730 H* 2.230 H* Total Protein Albumin Globulin Albumin/Globulin Ratio Triglycerides Cholesterol LDL Cholesterol, Calc VLDL Cholesterol, Calc HDL Cholesterol Cholesterol/HDL Ratio Lipase TSH 02/10/19 02/10/19 02/10/19 03:31 03:31 03:31 WBC 7.47 RBC 4.46 Hgb 13.6 Hct 40.4 MCV 90.6 MCH 30.5 MCHC 33.7 RDW Std Deviation 44.9 RDW Coeff of Aurelio 13.4 Plt Count 167 MPV 12.1 H Immature Gran % (Auto) 0.0 Neut % (Auto) 57.0 Lymph % (Auto) 29.3 Burke % (Auto) 11.5 Eos % (Auto) 2.1 Baso % (Auto) 0.1 Immature Gran # (Auto) 0.00 Neut # (Auto) 4.25 Lymph # (Auto) 2.19 Burke # (Auto) 0.86 H Eos # (Auto) 0.16 Baso # (Auto) 0.01 PT INR APTT 35.9 H PTT Ratio 1.3 Sodium 145 Potassium 3.6 Chloride 110 H Carbon Dioxide 30 Anion Gap 5.0 BUN 11 Creatinine 0.73 Est Cr Clr Drug Dosing 55.0 Est GFR ( Amer) 88.3 Est GFR (Non-Af Amer) 76.2 BUN/Creatinine Ratio 15.5 Glucose 87 Estimat Average Glucose Hemoglobin A1c Calcium 8.3 L Total Bilirubin AST ALT Alkaline Phosphatase Troponin I Total Protein Albumin Globulin Albumin/Globulin Ratio Triglycerides 66 Cholesterol 117 LDL Cholesterol, Calc 63 VLDL Cholesterol, Calc 13 HDL Cholesterol 41 Cholesterol/HDL Ratio 3 Lipase TSH 1.770 02/10/19 02/10/19 06:49 10:30 WBC RBC Hgb Hct MCV MCH MCHC RDW Std Deviation RDW Coeff of Aurelio Plt Count MPV Immature Gran % (Auto) Neut % (Auto) Lymph % (Auto) Burke % (Auto) Eos % (Auto) Baso % (Auto) Immature Gran # (Auto) Neut # (Auto) Lymph # (Auto) Burke # (Auto) Eos # (Auto) Baso # (Auto) PT INR APTT 69.8 H* PTT Ratio 2.6 Sodium Potassium Chloride Carbon Dioxide Anion Gap BUN Creatinine Est Cr Clr Drug Dosing Est GFR ( Amer) Est GFR (Non-Af Amer) BUN/Creatinine Ratio Glucose Estimat Average Glucose Hemoglobin A1c Calcium Total Bilirubin AST ALT Alkaline Phosphatase Troponin I 1.740 H* Total Protein Albumin Globulin Albumin/Globulin Ratio Triglycerides Cholesterol LDL Cholesterol, Calc VLDL Cholesterol, Calc HDL Cholesterol Cholesterol/HDL Ratio Lipase TSH Diagnostic Findings ECGs personally reviewed: Sinus rhythm and ST/T-wave abnormalities as described in HPI in the anterior leads. Anterior T-wave abnormalities are new compared to August 2017 outpatient ECG. During initial consultation, cardiac catheterization and echocardiogram were recommended. At the time of this note, these studies have been completed. Echo 02/10/2019: And systolic function. EF 55-60%. LAD wall motion abnormality with akinetic apex. Mild left atrial dilation. No significant valvular abnormalities. RVSP 25. Cardiac catheterization 02/10/2019: 1. Moderate nonobstructive CAD involving the RCA and otherwise mild nonobstructive CAD involving left system. 2. No severe CAD, especially to cause her presenting rest symptoms. 3. No aortic stenosis. 4. Normal LVEDP. Medications Administered Current Inpatient Medications Acetaminophen (Tylenol) 650 mg PO Q4H PRN PRN Reason: Pain or Fever Stop: 03/11/19 22:23 Al Hydrox/Mg Hydrox/Simethicone (Maalox) 15 ml PO Q4H PRN PRN Reason: Dyspepsia Stop: 03/11/19 22:23 Aspirin (Ecotrin Ectab) 81 mg PO DAILY [facility] Stop: 03/12/19 08:59 Last Admin: 02/10/19 08:19 Dose: 81 mg Documented by: Atenolol (Tenormin) 100 mg PO DAILY [facility] Stop: 03/12/19 08:59 Last Admin: 02/10/19 08:19 Dose: Not Given Documented by: Clopidogrel Bisulfate (Plavix) 75 mg PO QAM [facility] Stop: 03/13/19 08:59 Sodium Chloride (Nss 1000ml) 1,000 mls @ 125 mls/hr IV .Q8H [facility] Stop: 02/10/19 20:00 Last Admin: 02/10/19 16:52 Dose: 125 mls/hr Documented by: Sodium Chloride (Nss) 500 mls @ 999 mls/hr IV .Q31M PRN PRN Reason: IF SYS BP LESS THAN 90 Stop: 03/12/19 15:44 Promethazine HCl 12.5 mg/ (Sodium Chloride) 50.5 mls @ 202 mls/hr IV Q6H PRN PRN Reason: Nausea And Vomiting Stop: 03/12/19 17:21 Isosorbide Mononitrate (Imdur Extended Rel) 30 mg PO DAILY [facility] Stop: 03/12/19 17:44 Levothyroxine Sodium (Synthroid) 75 mcg PO DAILYBB [facility] Stop: 03/12/19 06:29 Last Admin: 02/10/19 06:20 Dose: 75 mcg Documented by: Losartan Potassium (Cozaar) 50 mg PO DAILY [facility] Stop: 03/12/19 08:59 Last Admin: 02/10/19 08:20 Dose: 50 mg Documented by: Miscellaneous (Remove Nicoderm Patch) 1 ea N/A HS [facility] Stop: 03/12/19 20:59 Nicotine (Nicoderm Cq) 14 mg TD QAM [facility] Stop: 03/12/19 08:59 Last Admin: 02/10/19 08:20 Dose: 14 mg Documented by: Nifedipine (Procardia Xl) 90 mg PO DAILY [facility] Stop: 03/13/19 08:59 Ondansetron HCl (Zofran) 4 mg IV Q6H PRN PRN Reason: Nausea Stop: 03/11/19 22:23 Pantoprazole Sodium (Protonix) 40 mg PO DAILY [facility] Stop: 03/12/19 08:59 Last Admin: 02/10/19 08:20 Dose: 40 mg Documented by: Rosuvastatin Calcium (Crestor) 10 mg PO [facility] Stop: 03/12/19 20:59 PG Care Time/CCT Total # of Minutes Spent Total Time Spent with Patient: Total time spent is greater than 50% in coordination of care (as documented) at patient's floor/unit and/or counseling patient:
[2019-02-10] MEDS ORDERED: HEPARIN (PORCINE) 1000 UNIT/ML 10 ML (CATH LAB USE ONLY) ONE (13:42)
[2019-02-10] MEDS ORDERED: NiCARDipine HCL INJ 2.5 MG/ML 10 ML AMP ONE (13:42)
[2019-02-10] MEDS ORDERED: MIDAZOLAM HCL 1 MG/ML 2ML VIAL ONE (13:43)
[2019-02-10] MEDS ORDERED: fentaNYL citrate 100 MCG/2 ML VIAL ONE (13:43)
[2019-02-10] MEDS ORDERED: NITROGLYCERIN/D5W 100MCG/ML 20ML SYR ONE (13:43)
[2019-02-10] MEDS ORDERED: PERFLUTREN LIPID MICROSPHERE (DEFINITY) IV ONE (14:07)
--- NOTE | 2019-02-10 14:17 | Pre Anesthesia Assessment ---
Date of Service February 10, 2019 Pre Sedation Assessment Vital Signs Temp Pulse Pulse Resp BP BP Pulse Ox 02/10/19 11:45 36.6 C 66 16 114/70 94 02/10/19 09:27 55 L 02/10/19 08:15 36.8 C 55 L 16 113/66 94 02/10/19 03:51 36.6 C 51 L 20 122/71 94 02/09/19 23:30 67 02/09/19 23:02 36.8 C 59 L 18 145/83 H 96 02/09/19 22:48 72 20 166/74 H 97 02/09/19 22:24 36.6 C 59 L 18 154/78 H 97 02/09/19 21:33 53 L 20 142/70 H 96 02/09/19 19:40 66 20 148/69 H 99 02/09/19 18:10 57 L 20 167/78 H 96 02/09/19 17:26 36.7 C 69 18 165/92 H 97 Cardiovascular RRR, no murmur, no edema Respiratory normal respiratory effort, lungs clear to auscultation Pre-Sedation Airway Assessment Smoking Status: Current every day smoker Mallampati Class: III ASA: ASA3 NPO Status Date of Last Intake of Fluids: 02/09/19 Time of Last Intake of Fluids: 12:00 Date of Last Intake of Solid Food: 02/09/19 Time of Last Intake of Solid Foods: 12:00 Procedure Planning Contraindications for Sedation: none Current Medications Reviewed: Yes Notes The planned sedation has been discussed with the patient. Informed Consent was obtained. I have identified the patient, determined the appropriateness of sedation and have assessed the patient immediately prior to the procedure. All medicine(s) and interventions are by my order.
[2019-02-10] MEDS ORDERED: SODIUM CHLORIDE 0.9% 500 ML IV PRN (15:45)
--- NOTE | 2019-02-10 15:58 | Cardiac Catheterization ---
[facility] Data: Research Statistician Cardiac Status Clinical evaluation leading to the procedure CAD Presenation: Non STEMI Anginal Classification: CCS IV Heart Failure: No Cardiogenic Shock within 24 Hours: No Cardiac Arrest within 24 Hours: No Imaging Studies Past 6 Months: Yes Stress Studies Past 6 Months: No Standard Exercise Test: No Stress Echocardiogram: No Stress Testing w/SPECT MPI: No Cardiac CTA: No Coronary Anatomy Dominant: Right Left Ventricular Angiography EF (%): n/a Diagnostic Physicians Name: Michael Weinstein MD Status: Elective Closure Device Percutaneous Entry Location: Femoral Closure Device: None-Manual Hold Recommendations: Medical Therapy and/or Counseling Cardiac Cath Procedure Full Procedure Date February 10, 2019 Pre-Procedure Diagnosis Pre-Procedure Diagnosis: Non STEMI AUC Score AUC Score: 9 Post-Procedure Diagnosis Post-Procedure Diagnosis: Moderate CAD Procedure(s) Performed Procedure(s) Performed: Coronary Angiography and Left Heart Cath Acute Care Nursing Assistant Michael Weinstein MD Manufacturing Systems Engineer(s) [place] Estimated Blood Loss Estimated Blood Loss: < 25 ml Medication(s) Medication(s): Fentanyl, Lidocaine 1% and Versed Summary of Findings Procedures: 1. Coronary angiography 2. Left heart catheterization 3. Moderate sedation 4. Ultrasound guidance for arterial access Coronary angiography: 1. Left main coronary: The LMCA is large in caliber. Distal LMCA 10%. 2. Left anterior descending: LAD is a large-caliber vessel that wraps around the apex. Mid LAD 20%. Medium caliber D1 with ostial 30 to 40%. Medium caliber D2. 3. Circumflex: The circumflex is a large-caliber vessel. Mid circumflex 10%. Distal circumducted 20%. Large OM1 and medium caliber OM 2 without significant CAD. 4. Right coronary: RCA is large and dominant. Proximal RCA 30%. Mid RCA diffusely diseased 40 to 60% with focal 60% stenosis within the mid RCA. Distal RCA 30%. PDA and PL [address] 2 branches without significant CAD. ANGE-3 flow. Left heart catheterization: 1. No aortic stenosis. Peak to peak gradient across aortic valve was 0 mmHg. 2. Normal LVEDP; 5 mmHg. 3. Left ventriculography was not performed. Sedation start time: 2:24 PM Sedation end time: 3:21 PM Next Procedural details: 1. Unable to advance wire through the access needle within the right radial and left radial arteries. 2. Right femoral artery was successfully cannulated with a 5 Stateless catheter under ultrasound guidance. Ultrasound guidance: 1. Bedside ultrasound was used to successfully cannulate the right femoral artery. Impression: 1. Moderate nonobstructive CAD involving the RCA and otherwise mild nonobstructive CAD involving left system. 2. No severe CAD, especially to cause her presenting rest symptoms. 3. No aortic stenosis. 4. Normal LVEDP. Plan: 1. Medical therapy recommended. 2. Treat for possible vasospasm. 3. Recommend dual antiplatelet therapy for 1 year, if no contraindications for medical therapy of an STEMI. 4. Smoking cessation. 5. Images reviewed with interventional cardiology. Hemodynamics Rest Ao:: 138/53 Final Ao: 136/53 LV: 142/0/5 Recommendations Recommendations: Medical Therapy and/or Counseling Specimens Specimens: None Radiation Exposure (mGy) 201 mGy. Fluoro time 2 min. Contrast (mls) 30 ml Procedural Complication(s) None Disposition PCU (Sheath pulled in slab grinder and manual compression applied.)
[2019-02-10] MEDS: SODIUM CHLORIDE 0.9% 1000ML 1,000 ML IV SCH (16:52)
[2019-02-10] MEDS ORDERED: PROMETHAZINE HCL 12.5 MG in SODIUM CHLORIDE 0.9% 50 ML IV PRN (17:22)
[2019-02-10] MEDS ORDERED: CLOPIDOGREL BISULFATE 300 MG TAB PO STA (17:31)
[2019-02-10] MEDS ORDERED: ONDANSETRON HCL 8 MG in DEXTROSE 5% 50 ML IV ONE (17:45)
[2019-02-10] MEDS: ISOSORBIDE MONO EXTENDED REL 30 MG TABCR PO SCH (18:25)
[2019-02-10 19:03] LABS: Partial Thromboplastin Ratio 0.9; Partial Thromboplastin Time 24.8 Seconds (21.0-31.0)
[2019-02-10] MEDS ORDERED: ROSUVASTATIN CALCIUM 20 MG TAB PO SCH (21:00)
[2019-02-10] MEDS ORDERED: ROSUVASTATIN CALCIUM 10 MG TAB PO SCH (21:00)
--- NOTE | 2019-02-10 21:50 | Post Anesthesia Assessment ---
Date of Service February 10, 2019 Post Sedation Assessment Vital Signs Temp Pulse Pulse Resp BP Pulse Ox 02/10/19 19:59 36.3 C L 56 L 16 129/64 94 02/10/19 18:59 36.3 C L 58 L 16 130/74 94 02/10/19 17:59 56 L 14 136/78 96 02/10/19 17:35 61 14 144/80 H 96 02/10/19 16:59 62 16 139/72 96 02/10/19 16:29 63 14 126/64 95 02/10/19 16:15 36.5 C 67 14 150/81 H 93 02/10/19 11:45 36.6 C 66 16 114/70 94 02/10/19 09:27 55 L 02/10/19 08:15 36.8 C 55 L 16 113/66 94 02/10/19 03:51 36.6 C 51 L 20 122/71 94 02/09/19 23:30 67 02/09/19 23:02 36.8 C 59 L 18 145/83 H 96 02/09/19 22:48 72 20 166/74 H 97 02/09/19 22:24 36.6 C 59 L 18 154/78 H 97 Recovery Score Activity: Moves 4 extremities Respiration: Deep Breath/Cough Circulation: +/-20% PreAnes Value Consciousness: Fully Awake Oxygen Saturation: > 92% On Room Air Post Sedation Plan On clinical assessment, the patient appears to have tolerated the sedation without complications. Patient is recovering as anticipated. Patient will continue to be monitored by nursing and may be discharged when sedation discharge criteria are met per below protocol. Upon Completions of procedure and additional 15 minutes continue every 5 minute vital signs and the P.A.R. score; then discharge to a Phase I or Fast Track to Phase II per the following guidelines: * Discharge Patient to appropriate Phase II area if PAR is 8 or greater or return to pre- procedure baseline. The post - procedure orders will be as directed. * If PAR score is less than 8 or not return to pre-procedure baseline then patient will follow Phase I monitoring till PAR is reached for Phase II. The Phase I may be done in procedure room or may call to secure a Phase I area. * If naloxone or flumazenil are used for reversal, hold in Phase I for continued monitoring from when last reversal dose was given for a minimum of 60 minutes or longer pending the nurse and/or physician discretion of patient condition before discharge to Phase II. Please call the Sedation Physician to re-evaluate and complete post-note for discharge to Phase II area. Do NOT discharge from procedure sedation or Phase 1 until post- sedation evalua tion note is complete by procedure /sedation MD Sedation Discharge Instructions to be given to the patient at discharge to home.
[2019-02-11] MEDS: SODIUM CHLORIDE 0.9% 1000ML 1,000 ML IV SCH ×2 (00:39→09:01)
[2019-02-11] MEDS: LEVOTHYROXINE SODIUM 75 MCG TABLET PO SCH (05:55)
[2019-02-11 06:35] LABS: Hemoglobin 12.1 g/dL (12.0-16.0); Mean Corpuscular Hemoglobin 30.5 pg (25-34); Mean Corpuscular Hgb Conc 33.6 g/dL (32-36); Mean Corpuscular Volume 90.7 fL (80-100); Mean Platelet Volume 11.8 fL (7.4-10.4); Platelet Count 150 K/uL (130-400); RDW Coefficient of Variation 13.5 % (11.5-14.5); RDW Standard Deviation 44.6 fL (36.4-46.3); Red Blood Count 3.97 M/uL (4.2-5.4); White Blood Count 6.84 K/uL (4.8-10.8)
[2019-02-11 07:07] LABS: BUN Creatinine Ratio 15.6 (10-20); Calcium 7.7 mg/dl (8.5-10.1); Creatinine Clr Calc Pharmacy 51.1 ml/min; Est GFR (African American) 81.5; Est GFR (Non-African American) 70.3; Potassium 3.5 mmol/L (3.5-5.1)
[2019-02-11] MEDS: LOSARTAN POTASSIUM 50 MG TAB PO SCH (08:00)
[2019-02-11] MEDS: PANTOprazole 40 MG TAB PO SCH (08:00)
[2019-02-11] MEDS: NICOTINE 14 MG/24 HR PATCH TD SCH (08:01)
[2019-02-11] MEDS: ISOSORBIDE MONO EXTENDED REL 30 MG TABCR PO SCH (08:01)
[2019-02-11] MEDS: ASPIRIN 81 MG ECTAB PO SCH (08:01)
[2019-02-11] MEDS: ATENOLOL 50 MG TABLET PO SCH (09:00)
[2019-02-11] MEDS ORDERED: NIFEdipine EXTENDED REL 30 MG TABCR PO SCH (09:00)
[2019-02-11] MEDS ORDERED: CLOPIDOGREL BISULFATE 75 MG TAB PO SCH (09:00)
[2019-02-11] MEDS ORDERED: Nursing to Pharmacy Communication ONE (09:26)
--- NOTE | 2019-02-11 09:58 | Cardiology Progress Note ---
Date of Service February 11, 2019 Assessment & Plan (1) NSTEMI (non-ST elevated myocardial infarction): No severe, obstructive CAD noted on cardiac catheterization. No further angina. Continue aspirin 81 mg daily. Continue Plavix 75 mg for 1 year and then can be discontinued. Cardiac rehabilitation recommended. Treat for possible coronary vasospasm as the etiology for her rest symptoms with objective findings suggesting LAD infarct, in the absence of obstructive LAD CAD. (2) Acute coronary syndrome: Plan as above. (3) Hypertension: Blood pressure normal this morning. Continue current regimen and in regards to her nifedipine, give 60 mg this morning and if blood pressure can tolerate, can give the additional 30 mg to treat for possible vaso spasm. (4) Tobacco abuse: Once again it was recommended that she stop smoking. (5) Dyslipidemia: Recommend high-intensity statin therapy in light of CAD. (6) CAD (coronary artery disease): No severe CAD noted on cardiac catheterization. Continue medical therapy as outlined above. Treating for possible coronary vasospasm with nitrate therapy and additional calcium channel hardy if blood pressure tolerates. Disposition: From a cardiac perspective, if she can tolerate ambulated in the hallway without cardiac symptoms, she can be discharged after 48 hours of DC. Follow-up in 1 week in the cardiology office. Patient care discussed with Dr. Charles of the primary hospitalist service. If she remains hospitalized over the weekend, please call the on-call mud analysis supervisor for any questions or concerns. Subjective She has not had any chest pain, shortness of breath, syncope, near-syncope, palpitations, or edema. She denies bleeding. Her right groin catheterization site has not been painful and there is no reported bleeding. She did have some transient nausea and vomiting early last evening which has since completely resolved. She has tolerated a diet since then. Nursing staff was present at the bedside. Systolic blood pressure was less than 110 and her morning meds were do. Nifedipine was increased yesterday by primary service but she has not yet started the increased dose. She was asked to give her usual dose of 60 mg and then if blood pressure can tolerate later, can add the other 30 mg. She wants to go home today. She has not yet ambulated in the hallway. Review of systems: As above. Physical Exam Physical Exam: Gen.: No acute distress. Alert and oriented. HEENT: Anicteric sclera. Neck: No JVD. Cardiac: Regular. Normal S1-S2. No murmurs, rubs, or gallops. Pulmonary: Clear to auscultation bilaterally without wheezes, rales, or rhonchi. Abdomen: Soft, nontender, nondistended, with normoactive bowel sounds. No bruits noted. Extremities: Right femoral arterial catheterization site is clean, dry, and intact without erythema, discharge, or hematoma. No audible bruit. No edema or cyanosis. Psychiatric: Affect appears appropriate. Results & Data Vital Signs (Past 12 Hours) Vital Signs Temp Pulse Pulse Resp BP Pulse Ox 02/11/19 07:43 36.7 C 53 L 18 107/64 94 02/11/19 04:17 64 02/11/19 04:05 36.3 C L 58 L 18 106/64 95 02/10/19 23:56 36.6 C 54 L 17 116/56 L 95 Laboratory Results Laboratory Results - last 24 hr 02/10/19 02/10/19 02/11/19 10:30 18:29 06:20 WBC 6.84 RBC 3.97 L Hgb 12.1 Hct 36.0 L MCV 90.7 MCH 30.5 MCHC 33.6 RDW Std Deviation 44.6 RDW Coeff of Aurelio 13.5 Plt Count 150 MPV 11.8 H APTT 69.8 H* 24.8 PTT Ratio 2.6 0.9 Sodium Potassium Chloride Carbon Dioxide Anion Gap BUN Creatinine Est Cr Clr Drug Dosing Est GFR ( Amer) Est GFR (Non-Af Amer) BUN/Creatinine Ratio Glucose Calcium 02/11/19 06:20 WBC RBC Hgb Hct MCV MCH MCHC RDW Std Deviation RDW Coeff of Aurelio Plt Count MPV APTT PTT Ratio Sodium 142 Potassium 3.5 Chloride 111 H Carbon Dioxide 25 Anion Gap 6.0 BUN 12 Creatinine 0.78 Est Cr Clr Drug Dosing 51.1 Est GFR ( Amer) 81.5 Est GFR (Non-Af Amer) 70.3 BUN/Creatinine Ratio 15.6 Glucose 78 Calcium 7.7 L Diagnostic Findings Telemetry personally reviewed: There was a nonsustained episode of atrial tachycardia at 5:04 a.m. this morning. Otherwise, sinus rhythm. Medications Administered Current Inpatient Medications Acetaminophen (Tylenol) 650 mg PO Q4H PRN PRN Reason: Pain or Fever Stop: 03/11/19 22:23 Last Admin: 02/10/19 19:56 Dose: 650 mg Documented by: Al Hydrox/Mg Hydrox/Simethicone (Maalox) 15 ml PO Q4H PRN PRN Reason: Dyspepsia Stop: 03/11/19 22:23 Aspirin (Ecotrin Ectab) 81 mg PO DAILY [facility] Stop: 03/12/19 08:59 Last Admin: 02/11/19 08:01 Dose: 81 mg Documented by: Atenolol (Tenormin) 100 mg PO DAILY [facility] Stop: 03/12/19 08:59 Last Admin: 02/11/19 09:00 Dose: 100 mg Documented by: Clopidogrel Bisulfate (Plavix) 75 mg PO QAM [facility] Stop: 03/13/19 08:59 Last Admin: 02/11/19 08:01 Dose: 75 mg Documented by: Promethazine HCl 12.5 mg/ (Sodium Chloride) 50.5 mls @ 202 mls/hr IV Q6H PRN PRN Reason: Nausea And Vomiting Stop: 03/12/19 17:21 Isosorbide Mononitrate (Imdur Extended Rel) 30 mg PO DAILY [facility] Stop: 03/12/19 17:44 Last Admin: 02/11/19 08:01 Dose: 30 mg Documented by: Levothyroxine Sodium (Synthroid) 75 mcg PO DAILYBB [facility] Stop: 03/12/19 06:29 Last Admin: 02/11/19 05:55 Dose: 75 mcg Documented by: Losartan Potassium (Cozaar) 50 mg PO DAILY [facility] Stop: 03/12/19 08:59 Last Admin: 02/11/19 08:00 Dose: 50 mg Documented by: Miscellaneous (Remove Nicoderm Patch) 1 ea N/A HS [facility] Stop: 03/12/19 20:59 Last Admin: 02/10/19 20:55 Dose: 1 ea Documented by: Nicotine (Nicoderm Cq) 14 mg TD QAM [facility] Stop: 03/12/19 08:59 Last Admin: 02/11/19 08:01 Dose: Not Given Documented by: Nifedipine (Procardia Xl) 90 mg PO DAILY [facility] Stop: 03/13/19 08:59 Last Admin: 02/11/19 09:00 Dose: 60 mg Documented by: Ondansetron HCl (Zofran) 4 mg IV Q6H PRN PRN Reason: Nausea Stop: 03/11/19 22:23 Pantoprazole Sodium (Protonix) 40 mg PO DAILY [facility] Stop: 03/12/19 08:59 Last Admin: 02/11/19 08:00 Dose: 40 mg Documented by: Rosuvastatin Calcium (Crestor) 20 mg PO HS [facility] Stop: 03/12/19 20:59 Last Admin: 02/10/19 20:53 Dose: 20 mg Documented by: PG Care Time/CCT Total # of Minutes Spent Total Time Spent with Patient: Total time spent is greater than 50% in coordination of care (as documented) at patient's floor/unit and/or counseling patient:
--- NOTE | 2019-02-11 12:32 | Discharge Summary ---
Date of Service February 11, 2019 Admission HPI Per Admitting Provider 83 y/o F with PMH HTN, HLD, Hypothyroidism, Tobacco Abuse, Coronary Artery Calcifications (incidentally noted on CT scan 2016), and a history of an Ectopic Atrial Rhythm presents to [facility] with complaints of substernal chest pressure. Pt notes that she has had similar symptoms since last year and gets chest pressure about once a month on average. This usually lasts 10-15 min and self-resolves. This is not associated with exertion and occurs during rest. These episodes do not appear to follow any specific pattern. Today, pt comes into the ER because she had 3-4 occurrences of this chest pressure starting at about 7:30 AM and every few hrs thereafter, all lasting 10-15 min and all self-resolving. Again, appeared to be 'random' and not exertional. Pt had associated diaphoresis, but otherwise denied palpitations, SOB, F/N/V/D, syncope, near-syncope, edema, melena, hematochezia, hematuria, or other bleeding. Symptoms are not worsened by getting up and walking, exertion, changes in body position, or with breathing / coughing. No specific triggers such as food either. Pt was seen as an outpt at [facility] August 2017 for this and underwent Dobutamine Stress Echo, which was negative. Was also recommended to start a trial of Protonix 40 mg to take 3 days/week, which did appear to decrease the frequency of these incidents. Pt with no other acute concerns or complaints. ER Course: EKG- NSR, T wave inversion V3, V4, V5. CXR- Cardiomegaly. No other convincing evidence of acute cardiopulmonary disease. Pt received ASA 243 mg, IV Heparin 25,000 units Labs- Trop .681. Otherwise unremarkable Surg Hx: R shoulder surgery Social: Current everyday smoker ~1PPD for past 40+ yrs. Denies Alcohol/Illicit Drug use. Lives at home independently. Admission Exam Per Admitting Provider Constitutional: WD/WN, vitals as above Eyes: PERRL, conjunctivae normal, anicteric sclerae ENMT: external ear and nose normal, oropharynx normal Respiratory: normal respiratory effort, lungs clear to auscultation Cardiovascular: RRR, no murmur, no edema Chest (Breasts): Additional Comments: substernal chest pressure not reproducib le on palpation Gastrointestinal (Abdomen): normal bowel sounds, soft, nontender, no hepatosplenomegaly Skin: no rashes, warm and dry Psychiatric: A+Ox3, euthymic affect Lymphatic: No LE swelling Principal Diagnosis Vasospastic angina / NSTEMI Discharge Exam Constitutional WD/WN, vitals as above Respiratory normal respiratory effort, lungs clear to auscultation Cardiovascular RRR, no murmur, no edema Gastrointestinal (Abdomen) normal bowel sounds, soft, nontender, no hepatosplenomegaly Skin no rashes, warm and dry Psychiatric A+Ox3, euthymic affect Discharge Data Allergies Allergy/AdvReac Type Severity Reaction Status Date / Time ibuprofen Allergy Unknown NAUSEA Unverified 02/09/19 19:25 Consultations 02/09/19 19:51 ED Decision to Admit Stat 02/09/19 22:24 Consult Cardiology Routine 02/10/19 15:45 Consult Cardiac Rehabilitation Routine Procedures Performed Operation Date: 02/10/19 10:30 Actual Procedures p Cath, Left with Cors and Vent - Michael Weinstein MD s Cineradiography w/Routine Exam - Michael Weinstein MD Impression: 1. Moderate nonobstructive CAD involving the RCA and otherwise mild n onobstructive CAD involving left system. 2. No severe CAD, especially to cause her presenting rest symptoms. 3. No aortic stenosis. 4. Normal LVEDP. Plan: 1. Medical therapy recommended. 2. Treat for possible vasospasm. 3. Recommend dual antiplatelet therapy for 1 year, if no contraindications for medical therapy of an STEMI. 4. Smoking cessation. 5. Images reviewed with interventional cardiology. Ordered Studies 02/10/19 13:30 CL Cath Imgs for PACS use only Routine Hospital Course (1) NSTEMI (non-ST elevated myocardial infarction): 83 y/o F with PMH HTN, HLD, Hypothyroidism, Tobacco Abuse, Coronary Artery Calcifications, and a history of an Ectopic Atrial Rhythm found to have NSTEMI likely due to vasospastic angina, now stable for discharge home with self care. NSTEMI / Vasospastic Angina - Pt initially admitted due to chest pain in the setting of EKG changes consistent with NSTEMI and elevated troponins. Catheterization showed moderate disease but no complete or near-complete blockages and it was determined that this was likely vasospastic angina due to her smoking history. - For home, increased her nifedipine to 90 mg daily, and added Imdur 30mg daily, Plavix 75mg daily for one year, increased Crestor to 20mg daily. - Extensive conversation had with patient regarding smoking cessation. Pt understands that her smoking directly causes damage to her heart and does not have intention to quit at this time. - Advised patient to follow up with PCP in [place] within 7 days to go over hospital course and discuss further her new medications. - Encouraged to return to the hospital if she has episodes of pain similar to what she experienced this time. HTN/HLD -cont home losartan 50, increased to nifedipine 90, increased to crestor 20 -can consider increasing to high dose statin moving forward -looking back at outpt records, BP does not seem to be optimal, but BP was normotensive here. Will likely continue to be normotensive given increase of nifedipine and addition of Imdur. H/O Ectopic atrial rhythm/PVCs -Continue beta-hardy therapy with Atenolol 100. -Asymptomatic at present. Hypothyroidism -Cont home levothyroxine 75 mcg. Tobacco Abuse - Spent over 15 minutes with patient in discussion of smoking cessation. Pt is aware that her smoking causes irreversible cardiac and blood vessel damage and that if she does not quit she can continue having episodes of angina due to vasospasm. She verbalized understanding and at this time will continue to smoke. (2) Vasospastic angina: (3) Dyslipidemia: (4) Tobacco abuse: (5) Hypertension: (6) Hypothyroidism: Total Time Total Time Spent Total Time Spent (In Minutes): <30 minutes Discharge Plan Discharge Items Patient Disposition: Home - Self-Care Reason For Visit: NSTEMI Discharge Diagnosis: Heart attack Discharge Goals: Improve disease control, Learn about illness, Prevent disease and Therapeutic intervention Activity: Resume your previous activity Lifting: No more than 10 pounds Lifting Comment: for three days Driving/Machine Use: Resume 3 days after discharge Non-emergency contact: Primary Care Provider Call non-emergency contact if: you have any medication questions and your temperature is above 100.5 Follow-up/Referrals: PCPNO [Primary Care Provider] - Diet: Heart Healthy Addtl Provider Instructions: You were admitted for chest pain and found to have a heart attack. We took you for a test to check the arteries in your heart to see if they were clogged. You had some clogging of your arteries, but we determined that your vessels are squeezing shut because of your smoking. Smoking squeezes the vessels in your body, including your heart, and when they squeeze the blood cannot pass through the way it is supposed to. Without blood the heart tissue gets damaged and can . In order to protect your heart the best we can, we are starating a few medications. We are increasing your nifedipine to 90mg daily and starting you on Imdur 30mg daily. These medications are to help keep open those blood vessels that are squeezing down. Over the next 3-4 days go very slowly from lying down to sitting up and up sitting up to standing to make sure you have your bearings. If the medicines make you lightheaded we can change your doses of these medicines. We have also started you on Plavix 75mg, a blood thinner. This is to keep your blood thin to help prevent blockages in your blood vessels. I have also sent you home on an increased dose of your Crestor, your cholesterol pill. You will now take 20mg daily. This is also to help prevent blockages in your blood vessels. The biggest thing you can do to help prevent your blood vessels from squeezing down is to QUIT SMOKING. Please schedule an appointment with your primary care doctor for within a week of leaving the hospital. They will see you at [facility]. ACTIVITY RECOMMENDATIONS: It is common to feel weak and fatigue for a few days. * Do not drive or operate any motorized equipment for the next three days. * Limit stair usage (2 or 3 trips a day only) for the next three days. * Do not lift anything heavier than 10 pounds for the next three days. * Do not engage in vigorous exercise or any sports for the next five days. * You may shower the day after your procedure, but do not immerse the area for three days. Cleanse the site gently with soap and water. SPECIAL CARE INSTRUCTIONS: * You may replace the pressure dressing or band-aid the morning after the procedure. * After your procedure, it is normal to have a small bruise or small lump at the site. Examine your site daily for any change in the bruise or lump, redness, swelling, drainage or numbness. Notify your doctor if any change. BLEEDING: * If there is a small amount of bleeding at the site, lie down and apply firm pressure with a clean cloth for ten minutes. When the bleeding stops, lie quietly keeping the procedure limb straight for six hours. Notify your doctor as soon as possible. * If the bleeding does not stop after ten minutes or if there is a large amount of bleeding or spurting, call 911 immediately. Continue to lie down and hold firm pressure until help arrives. SKIN IRRITATION: * You may experience some redness and/or swelling in the area where radiation was administered. If any skin irritation occurs, please contact your family physician. FOLLOW UP VISIT: Keep any scheduled doctor appointments. Prescriptions: New isosorbide mononitrate 30 mg Tablet Extended Release 24 Hr 30 mg PO DAILY Qty: 30 RF: 0 nifedipine [Adalat CC] 30 mg Tablet Extended Release 90 mg PO DAILY Qty: 30 RF: 0 clopidogrel 75 mg Tablet 75 mg PO QAM Qty: 30 RF: 0 rosuvastatin [Crestor] 20 mg Tablet 20 mg PO HS Qty: 30 RF: 0 Continued losartan [Cozaar] 50 mg tablet 50 mg PO DAILY RF: 0 levothyroxine 75 mcg Tablet 75 mcg PO DAILY RF: 0 atenolol 50 mg Tablet 100 mg PO DAILY RF: 0 aspirin [Aspir-81] 81 mg Tablet,Delayed Release (Dr/Ec) 81 mg PO DAILY RF: 0 pantoprazole 40 mg Tablet,Delayed Release (Dr/Ec) 40 mg PO .TODAU RF: 0 Discontinued nifedipine 60 mg Tablet Extended Release 60 mg PO DAILY RF: 0 rosuvastatin [Crestor] 10 mg tablet 10 mg PO HS RF: 0 Stand-Alone Forms: [facility] Discharge Orders: Discharge Order (Routine); Ordered 02/11/19 Ordered By: Anum Santoyo Admission Data Admit Date/Time: 02/09/19 21:16 Attending Provider: Lance Charles Admit Provider: Camilo Arechiga Primary Care Provider: PCP,NO Other Providers: Jorge Heath ; Michael Weinstein Service: Telemetry Other Interventions: Discharge Summary Assessment (RN) Last Done: 02/11/19 12:13 DC Date/Time DO NOT enter until pt leaves facility: 02/11/19 13:20 Supervising Physician Co-Signing Physician Notes I personally examined the patient and verified all early points of history and exam, discussed case, and agree with decision making with Dr Santoyo. Feeling good. No complaints. Wants to go home. Is very reluctant to admit that smoking may have played a role in her heart attack. Vitals noted, in general she is awake and alert pleasant no distress. HEENT normal cephalic atraumatic mucous members are moist. Breathing unlabored no accessory muscle use good effort. Skin shows no rashes no pallor or icterus. NSTEMIafter cath, this appears to be vasospasm. Increase Procardia to 90 mg, started isosorbide to 30cautioned about possible lightheadedness/orthostasis, s he expressed good understanding. If this happens then we would probably want to stop the isosorbide first versus reducing the Procardia. She expressed good understanding about how to be safe as she is adjusting the medicines. We discussed that continuing to smoke really puts her at risk of further vasospasm and then further heart attacks. She very reluctantly expressed understanding, but made it a point to tell me that people who have never smoked have heart attacks too. I explained to her that she is a smoker and had a heart attack. Tobacco abusecounseled to quit as above. Son is encouraging her to quit as well. I would say in assessing her readiness to quit she is contemplative at best Resident Activity Tracking Resident Involvement: Resident Care Provided Care Provided: Adult Hospital Medicine
== END 2019-02-11 13:20 | disposition home or self-care (01) | DRG 282 ==
LOC: ED 17:23 → 2S 21:16 → SUATTDRO 21:16 → 2S 21:49